=== PATIENT | male | born 1995 | race Caucasian/White ===

== ENCOUNTER 2017-11-07 21:43 | Emergency (ER) | payer BC ==
[~2017-11-07] VITALS: Ht 188 cm; Wt 99.8 kg
[~2017-11-07 21:43] MED LIST: PRED15SY PO
[2017-11-07] MEDS ORDERED: Valtrex1000 MG PO (23:49)
[2017-11-10 23:06] LABS: HSV-1 DNA Positive (Negative); HSV-2 DNA Negative (Negative)
== END 2017-11-08 00:10 | disposition home or self-care (01) ==
LOC: ER 21:43
PROVIDERS: Emergency Medicine
DX: A60.02 Herpesviral infection of other male genital organs (principal); F17.200 Nicotine dependence, unspecified, uncomplicated
CPT/HCPCS: 99283

== ENCOUNTER 2018-04-15 00:57 | Emergency (ER) | payer OTHER ==
[~2018-04-15] VITALS: Ht 190.5 cm; Wt 95.2 kg
[~2018-04-15 00:57] MED LIST changes: +Valtrex1000 MG PO
[2018-04-15 03:13] LABS: Influenza A Positive (NEGATIVE)
[2018-04-15 03:14] LABS: Influenza B Negative (NEGATIVE)
[2018-04-15] MEDS ORDERED: Tamiflu75 MG PO (03:18)
== END 2018-04-15 03:34 | disposition home or self-care (01) ==
LOC: ER 00:57
PROVIDERS: Emergency Medicine
DX: J10.1 Influenza due to other identified influenza virus with other respiratory manifestations (principal); F17.200 Nicotine dependence, unspecified, uncomplicated
CPT/HCPCS: 87804; 96372; 99282-25; J1885